=== PATIENT | male | born 1945 | race African-American/Black ===

== ENCOUNTER 2016-10-18 11:03 | Inpatient (IN) | payer OTHER ==
[2016-10-18] VITALS (7 sets, daily range): BP systolic 91–138; BP diastolic 51–92
[~2016-10-18] VITALS: Ht 172.7 cm; Wt 64.5 kg
[~2016-10-18 11:03] MED LIST: ATOR10TA PO; CARV3.1242 PO; FURO-152 PO; HYDR-4133 PO; ISOS30TA6 PO
[2016-10-18] MEDS ORDERED: ONDANSETRON HCL 4MG/2ML VIAL IV STA (11:20)
[2016-10-18] MEDS ORDERED: SODIUM CHLORIDE 0.9% 500 ML IV ONE (11:20)
[2016-10-18] MEDS ORDERED: ASPIRIN 81MG TABLET PO STA (11:20)
[2016-10-18 11:53] LABS: BASOPHILS % 0.3 % (0.0-2.0); EOSINOPHILS % 0.8 % (0.0-5.0); HEMATOCRIT. 44.2 % (42.0-52.0); HEMOGLOBIN. 14.1 g/dL (14.0-18.0); MEAN CORPUSCULAR HEMOGLOBIN 31.1 pg (28.0-32.0); MEAN CORPUSCULAR HGB CONC 31.8 g/dL (31.0-37.0); MEAN CORPUSCULAR VOLUME 97.8 fL (80.0-94.0); MEAN PLATELET VOLUME 9.2 fl (7.4-10.4); MONOCYTES % 10.4 % (2.0-8.0); NEUTROPHILS % 64.5 % (40.0-76.0); PLATELET 164 x1000/uL (130-400); RED BLOOD CELL COUNT 4.52 mill/uL (4.7-6.1); RED CELL DISTRIBUTION WIDTH 15.1 % (11.6-14.6); WHITE BLOOD COUNT 6.3 x1000/uL (4.5-11.0)
[2016-10-18 12:29] LABS: ALANINE AMINOTRANSFERASE 26 IU/L (13-61); ALBUMIN 3.3 g/dL (3.4-5.0); ANION GAP 11; CARBON DIOXIDE 29 mEq/L (21-32); CHLORIDE 105 mEq/L (98-107); INDEX HEMOLYSI 1 (1-3); INDEX ICTERIC 1 (1-4); INDEX LIPEMIC 1 (1-3); LIPASE 49 IU/L (73-393); UREA NITROGEN BLOOD 37 mg/dL (7-21); eGFR 43 mL/min (>60)
[2016-10-18 12:32] LABS: D-DIMER 2.07 mg/L FEU (<0.50); INR 1.1; PARTIAL THROMBOPLASTIN TIME 25.7 sec (24.0-34.0); PROTHROMBIN TIME 11.4 sec
[2016-10-18 12:33] LABS: NT PRO B-TYPE NATRIURETIC PEP 10519 pg/mL (5-125)
[2016-10-18 12:35] LABS: TROPONIN I 0.68 ng/mL (0.00-0.04)
[2016-10-18] MEDS ORDERED: ENOXAPARIN 80MG/0.8ML SYR SUBCUT ONE (13:00)
[2016-10-18] MEDS ORDERED: SODIUM POLYSTYRENE SULFONATE 15 G/60 ML BOT PO NR (13:15)
[2016-10-18] MEDS ORDERED: NA PHOS,M-B/NA PHOS,DI-BA ENEMA 118ML PR PRN (13:15)
[2016-10-18] MEDS ORDERED: ACETAMINOPHEN 325MG TABLET PO PRN (13:15)
[2016-10-18] MEDS ORDERED: IPRATROPIUM/ALBUTEROL 0.5-3(2.5)MG/3ML NEB INH PRN (13:15)
[2016-10-18] MEDS ORDERED: DEXTROSE 50% WATER 50ML SYRINGE IV PRN (13:15)
[2016-10-18] MEDS ORDERED: TRAMADOL 50MG TABLET PO PRN (13:15)
[2016-10-18] MEDS ORDERED: DIPHENHYDRAMINE 50MG/ML VIAL IV PRN (13:15)
[2016-10-18] MEDS ORDERED: ZOLPIDEM TARTRATE 5MG TABLET PO PRN (13:15)
[2016-10-18] MEDS ORDERED: DOCUSATE SODIUM 100MG CAPSULE PO PRN (13:15)
[2016-10-18] MEDS ORDERED: NITROGLYCERIN 0.4MG TABLET SL SL PRN (13:15)
[2016-10-18] MEDS ORDERED: LORAZEPAM 2MG/ML CPJ IV PRN (13:15)
[2016-10-18] MEDS ORDERED: MAGNESIUM/ALUMINUM HYDROXIDE/SIMETHICONE 30ML UDC PO PRN (13:15)
[2016-10-18] MEDS ORDERED: GUAIFENESIN 200MG/10ML SUGAR FREE UDC PO PRN (13:15)
[2016-10-18] MEDS ORDERED: CLONIDINE 0.1MG TABLET PO PRN (13:15)
[2016-10-18] MEDS ORDERED: ONDANSETRON HCL 4MG/2ML VIAL IV PRN (13:15)
[2016-10-18] MEDS ORDERED: MORPHINE SULFATE 4 MG/ML CPJ (NOT FOR IM USE) IV ONE (14:15)
[2016-10-18] MEDS ORDERED: ONDANSETRON HCL 4MG/2ML VIAL IV ONE (14:15)
[2016-10-18 15:10] LABS: CREATINE KINASE MB FRACTION 4.5 ng/mL (0.5-3.6)
[2016-10-18 15:12] LABS: TROPONIN I 0.65 ng/mL (0.00-0.04)
[2016-10-18] MEDS: BLOOD SUGAR DIAGNOSTIC STRIP TEST SCH ×2 (16:39→21:00)
[2016-10-18] MEDS ORDERED: ENOXAPARIN 60MG/0.6ML SYR SUBCUT SCH (17:00)
[2016-10-18] MEDS: MORPHINE SULFATE 2 MG/ML CPJ (NOT FOR IM USE) IV PRN ×2 (17:45→23:18)
[2016-10-18] MEDS: INSULIN LISPRO 100 UNITS/ML SUBCUT SCH ×2 (17:47→21:29)
[2016-10-18] MEDS: CARVEDILOL 3.125 MG TABLET PO SCH (18:20)
[2016-10-18] MEDS: ATORVASTATIN CALCIUM 10MG TABLET PO SCH (21:29)
[2016-10-18] MEDS ORDERED: INSULIN DETEMIR UD 100 UNITS/ML SYR SUBCUT SCH (22:00)
[2016-10-18] MEDS: INSULIN DETEMIR UD 100 UNITS/ML SYR SUBCUT SCH (23:00)
[2016-10-18 23:08] LABS: CREATINE KINASE 163 IU/L (39-308); INDEX HEMOLYSI 1 (1-3)
[2016-10-19] VITALS (11 sets, daily range): BP systolic 114–161; BP diastolic 54–93
[2016-10-19] MEDS: MORPHINE SULFATE 2 MG/ML CPJ (NOT FOR IM USE) IV PRN ×4 (05:47→21:51)
[2016-10-19] MEDS: CARVEDILOL 3.125 MG TABLET PO SCH ×2 (06:09→18:12)
[2016-10-19 06:19] LABS: BASOPHILS % 0.5 % (0.0-2.0); EOSINOPHILS % 1.2 % (0.0-5.0); HEMATOCRIT. 41.2 % (42.0-52.0); HEMOGLOBIN. 13.2 g/dL (14.0-18.0); LYMPHOCYTES % 45.3 % (20.0-50.0); MEAN CORPUSCULAR HEMOGLOBIN 31.3 pg (28.0-32.0); MEAN CORPUSCULAR HGB CONC 32.1 g/dL (31.0-37.0); MEAN CORPUSCULAR VOLUME 97.4 fL (80.0-94.0); MEAN PLATELET VOLUME 8.8 fl (7.4-10.4); MONOCYTES % 12.1 % (2.0-8.0); NEUTROPHILS % 40.9 % (40.0-76.0); PLATELET 130 x1000/uL (130-400); RED BLOOD CELL COUNT 4.22 mill/uL (4.7-6.1); RED CELL DISTRIBUTION WIDTH 14.4 % (11.6-14.6); WHITE BLOOD COUNT 5.2 x1000/uL (4.5-11.0)
[2016-10-19] MEDS: BLOOD SUGAR DIAGNOSTIC STRIP TEST SCH ×4 (06:50→21:00)
[2016-10-19 07:06] LABS: ALANINE AMINOTRANSFERASE 35 IU/L (13-61); ALBUMIN 3.1 g/dL (3.4-5.0); ANION GAP 10; CALCIUM 8.7 mg/dL (8.5-10.1); CARBON DIOXIDE 31 mEq/L (21-32); CHLORIDE 108 mEq/L (98-107); CREATINE KINASE 135 IU/L (39-308); HDL CHOLESTEROL 53 mg/dL (40-59); INDEX HEMOLYSI 1 (1-3); INDEX ICTERIC 1 (1-4); INDEX LIPEMIC 1 (1-3); MAGNESIUM 2.4 mg/dL (1.8-2.4); TRIGLYCERIDE 89 mg/dL (0-150); UREA NITROGEN BLOOD 42 mg/dL (7-21); eGFR 40 mL/min (>60)
[2016-10-19] MEDS: INSULIN LISPRO 100 UNITS/ML SUBCUT SCH ×4 (07:20→21:14)
[2016-10-19 07:21] LABS: LDL CHOLESTEROL 52 mg/dL (5-100)
[2016-10-19] MEDS: ASPIRIN 325MG EC TABLET PO SCH (08:08)
[2016-10-19] MEDS: PANTOPRAZOLE SODIUM 40 MG/VIAL IV SCH (08:08)
[2016-10-19 08:35] LABS: TROPONIN I 0.66 ng/mL (0.00-0.04)
[2016-10-19] MEDS: NITROGLYCERIN OINT 1GM/INCH UDPKT TD SCH ×4 (10:38→21:13)
[2016-10-19] MEDS ORDERED: ENOXAPARIN 60MG/0.6ML SYR SUBCUT SCH (13:00)
[2016-10-19] MEDS ORDERED: LIDOCAINE HCL 1% 20ML VIAL (Pyxis) INJ ONE (13:42)
[2016-10-19] MEDS ORDERED: IODIXANOL 320MG/ML 200ML BOTTLE ONE (13:45)
[2016-10-19] MEDS ORDERED: FENTANYL CITRATE/PF 50MCG/ML 2ML VIAL ONE (14:00)
[2016-10-19] MEDS ORDERED: MIDAZOLAM HCL 2 MG/2 ML VIAL ONE ×2 (14:00→14:12)
[2016-10-19] MEDS ORDERED: HEPARIN SODIUM 1,000 UNIT/1ML VIAL IV ONE ×2 (14:01→14:40)
[2016-10-19 14:23] LABS: CLARITY URINE CLEAR (CLEAR); COLOR URINE YELLOW (YELLOW); GLUCOSE URINE 2+ (NEGATIVE); KETONES URINE NEGATIVE (NEGATIVE); LEUKOCYTE ESTERASE URINE NEGATIVE (NEGATIVE); NITRITE URINE NEGATIVE (NEGATIVE); OCCULT BLOOD URINE NEGATIVE (NEGATIVE); PROTEIN URINE NEGATIVE (NEGATIVE); SPECIFIC GRAVITY URINE 1.022 (1.005-1.030)
[2016-10-19 14:34] LABS: *AMPHETAMINES SCREEN URINE NEGATIVE (NEGATIVE); *BARBITURATES SCREEN URINE NEGATIVE (NEGATIVE); *BENZODIAZEPINES SCREEN URINE NEGATIVE (NEGATIVE); *COCAINE SCREEN URINE NEGATIVE (NEGATIVE); CANNABINOID URINE SCREEN NEGATIVE (NEGATIVE); ECSTASY MDMA SCREEN URINE NEGATIVE (NEGATIVE); METHADONE URINE SCREEN NEGATIVE (NEGATIVE); OPIATES URINE SCREEN PRESUMTIVE POSITIVE (NEGATIVE); PHENCYCLIDINE URINE SCREEN NEGATIVE (NEGATIVE)
[2016-10-19] MEDS ORDERED: ONDANSETRON HCL 4MG/2ML VIAL ONE (15:12)
[2016-10-19 15:18] LABS: SQUAMOUS EPITHELIAL CELL URINE RARE /lpf (RARE/1+)
[2016-10-19 15:19] LABS: BACTERIA URINE NONE SEEN; RBC URINE 0-2 /hpf (0-2); WBC URINE 0-2 /hpf (0-2)
[2016-10-19] MEDS: ATORVASTATIN CALCIUM 10MG TABLET PO SCH (21:12)
[2016-10-19] MEDS: INSULIN DETEMIR UD 100 UNITS/ML SYR SUBCUT SCH (22:03)
[2016-10-20] VITALS (11 sets, daily range): BP systolic 131–159; BP diastolic 65–97
[2016-10-20] MEDS: NITROGLYCERIN OINT 1GM/INCH UDPKT TD SCH ×5 (01:08→17:44)
[2016-10-20] MEDS: MORPHINE SULFATE 2 MG/ML CPJ (NOT FOR IM USE) IV PRN ×3 (04:39→16:00)
[2016-10-20] MEDS: CARVEDILOL 3.125 MG TABLET PO SCH ×2 (05:47→17:44)
[2016-10-20 06:43] LABS: BASOPHILS % 0.5 % (0.0-2.0); EOSINOPHILS % 1.2 % (0.0-5.0); HEMATOCRIT. 37.9 % (42.0-52.0); HEMOGLOBIN. 12.2 g/dL (14.0-18.0); LYMPHOCYTES % 33.5 % (20.0-50.0); MEAN CORPUSCULAR HEMOGLOBIN 31.2 pg (28.0-32.0); MEAN CORPUSCULAR HGB CONC 32.1 g/dL (31.0-37.0); MEAN CORPUSCULAR VOLUME 97.1 fL (80.0-94.0); MEAN PLATELET VOLUME 8.7 fl (7.4-10.4); MONOCYTES % 13.7 % (2.0-8.0); NEUTROPHILS % 51.1 % (40.0-76.0); PLATELET 121 x1000/uL (130-400); RED BLOOD CELL COUNT 3.91 mill/uL (4.7-6.1); RED CELL DISTRIBUTION WIDTH 15.1 % (11.6-14.6); WHITE BLOOD COUNT 4.9 x1000/uL (4.5-11.0)
[2016-10-20] MEDS: BLOOD SUGAR DIAGNOSTIC STRIP TEST SCH ×3 (06:50→16:02)
[2016-10-20 07:19] LABS: CHLORIDE 107 mEq/L (98-107); INDEX HEMOLYSI 1 (1-3); INDEX ICTERIC 1 (1-4); INDEX LIPEMIC 1 (1-3)
[2016-10-20] MEDS: INSULIN LISPRO 100 UNITS/ML SUBCUT SCH ×3 (07:55→17:43)
[2016-10-20 08:28] LABS: ALANINE AMINOTRANSFERASE 43 IU/L (13-61); ALBUMIN 2.9 g/dL (3.4-5.0); ANION GAP 16; CALCIUM 8.4 mg/dL (8.5-10.1); CARBON DIOXIDE 25 mEq/L (21-32); MAGNESIUM 2.3 mg/dL (1.8-2.4); NT PRO B-TYPE NATRIURETIC PEP 10182 pg/mL (5-125); UREA NITROGEN BLOOD 33 mg/dL (7-21); eGFR 52 mL/min (>60)
[2016-10-20] MEDS: PANTOPRAZOLE SODIUM 40 MG/VIAL IV SCH (09:02)
[2016-10-20] MEDS: ASPIRIN 325MG EC TABLET PO SCH (09:02)
[2016-10-21] MEDS ORDERED: PANTOPRAZOLE 40MG DR TABLET PO SCH (06:50)
== END 2016-10-20 20:22 | disposition short-term general hospital (02) | DRG 280 ==
LOC: ER 11:07 → 3WST 12:51 → SUPCPDRO 12:59
PROVIDERS: ADMIT Internal Medicine; ATTEND Internal Medicine
PROC: 4A023N7 Measurement of Cardiac Sampling and Pressure, Left Heart, Percutaneous Approach (ICD-10-PCS; principal; 2016-10-19)
PROC: B2111ZZ Fluoroscopy of Multiple Coronary Arteries using Low Osmolar Contrast (ICD-10-PCS; 2016-10-19)
PROC: B2131ZZ Fluoroscopy of Multiple Coronary Artery Bypass Grafts using Low Osmolar Contrast (ICD-10-PCS; 2016-10-19)
PROC: B2181ZZ Fluoroscopy of Left Internal Mammary Bypass Graft using Low Osmolar Contrast (ICD-10-PCS; 2016-10-19)
DX: I21.4 Non-ST elevation (NSTEMI) myocardial infarction (principal); N17.0 Acute kidney failure with tubular necrosis; I13.0 Hypertensive heart and chronic kidney disease with heart failure and stage 1 through stage 4 chronic kidney disease, or unspecified chronic kidney disease; I42.0 Dilated cardiomyopathy; I45.2 Bifascicular block; N17.9 Acute kidney failure, unspecified; T82.898A Other specified complication of vascular prosthetic devices, implants and grafts, initial encounter; E44.0 Moderate protein-calorie malnutrition; E11.22 Type 2 diabetes mellitus with diabetic chronic kidney disease; I50.9 Heart failure, unspecified; E78.00 Pure hypercholesterolemia, unspecified; E87.5 Hyperkalemia; H91.90 Unspecified hearing loss, unspecified ear; I34.0 Nonrheumatic mitral (valve) insufficiency; I44.0 Atrioventricular block, first degree; I45.10 Unspecified right bundle-branch block; J44.9 Chronic obstructive pulmonary disease, unspecified; Y83.2 Surgical operation with anastomosis, bypass or graft as the cause of abnormal reaction of the patient, or of later complication, without mention of misadventure at the time of the procedure; I25.119 Atherosclerotic heart disease of native coronary artery with unspecified angina pectoris; I25.5 Ischemic cardiomyopathy; M19.90 Unspecified osteoarthritis, unspecified site; N18.9 Chronic kidney disease, unspecified; Z79.02 Long term (current) use of antithrombotics/antiplatelets; Z79.899 Other long term (current) drug therapy; I25.2 Old myocardial infarction; Z68.21 Body mass index [BMI] 21.0-21.9, adult; Z79.4 Long term (current) use of insulin; Z95.5 Presence of coronary angioplasty implant and graft; Z88.0 Allergy status to penicillin; Z95.810 Presence of automatic (implantable) cardiac defibrillator; Y92.89 Other specified places as the place of occurrence of the external cause; Z95.1 Presence of aortocoronary bypass graft
CPT/HCPCS: 36415; 70450; 71010; 78582; 80053; 80061; 80305; 81001; 82550; 82553; 82962; 83036; 83690; 83735; 83880; 84443; 84484; 85025; 85379; 85610; 85730; 93005; 93306; 93459; 93970; 96361; 96372; 96374; 99285; A9558; C1760; C1769; C1887; C1893; C9113; J1644; J1650; J1815; J2250; J2270; J2405; J3010; J3490; J7040; Q9967

== ENCOUNTER 2016-10-27 10:41 | Inpatient (IN) | payer OTHER ==
[~2016-10-27] VITALS: Ht 172.7 cm; Wt 64.9 kg
[2016-10-27 11:45] LABS: BASOPHILS % 0.7 % (0.0-2.0); HEMATOCRIT. 43.3 % (42.0-52.0); HEMOGLOBIN. 13.8 g/dL (14.0-18.0); LYMPHOCYTES % 25.7 % (20.0-50.0); MEAN CORPUSCULAR HEMOGLOBIN 30.7 pg (28.0-32.0); MEAN CORPUSCULAR HGB CONC 31.9 g/dL (31.0-37.0); MEAN CORPUSCULAR VOLUME 96.2 fL (80.0-94.0); MEAN PLATELET VOLUME 8.8 fl (7.4-10.4); MONOCYTES % 14.2 % (2.0-8.0); NEUTROPHILS % 58.4 % (40.0-76.0); PLATELET 131 x1000/uL (130-400); RED CELL DISTRIBUTION WIDTH 14.9 % (11.6-14.6)
[2016-10-27 12:04] LABS: ALANINE AMINOTRANSFERASE 43 IU/L (13-61); ALBUMIN 3.5 g/dL (3.4-5.0); ANION GAP 13; CALCIUM 8.7 mg/dL (8.5-10.1); CARBON DIOXIDE 27 mEq/L (21-32); CHLORIDE 106 mEq/L (98-107); INDEX HEMOLYSI 1 (1-3); INDEX ICTERIC 1 (1-4); INDEX LIPEMIC 1 (1-3); UREA NITROGEN BLOOD 41 mg/dL (7-21); eGFR 40 mL/min (>60)
[2016-10-27 12:09] LABS: TROPONIN I 0.96 ng/mL (0.00-0.04)
[2016-10-27] MEDS ORDERED: NITROGLYCERIN OINT 1GM/INCH UDPKT TD ONE (12:45)
[2016-10-27] MEDS ORDERED: MORPHINE SULFATE 2 MG/ML CPJ (NOT FOR IM USE) IV ONE (12:45)
[2016-10-27] MEDS ORDERED: ASPIRIN 325MG EC TABLET PO ONE (12:45)
[2016-10-27] MEDS ORDERED: CLONIDINE 0.1MG TABLET PO PRN (15:30)
[2016-10-27] MEDS ORDERED: NA PHOS,M-B/NA PHOS,DI-BA ENEMA 118ML PR PRN (15:30)
[2016-10-27] MEDS ORDERED: ACETAMINOPHEN 325MG TABLET PO PRN (15:30)
[2016-10-27] MEDS ORDERED: GUAIFENESIN 200MG/10ML SUGAR FREE UDC PO PRN (15:30)
[2016-10-27] MEDS ORDERED: TRAMADOL 50MG TABLET PO PRN (15:30)
[2016-10-27] MEDS ORDERED: IPRATROPIUM/ALBUTEROL 0.5-3(2.5)MG/3ML NEB INH PRN (15:30)
[2016-10-27] MEDS ORDERED: DEXTROSE 50% WATER 50ML SYRINGE IV PRN (15:30)
[2016-10-27] MEDS ORDERED: ZOLPIDEM TARTRATE 5MG TABLET PO PRN (15:30)
[2016-10-27] MEDS ORDERED: NITROGLYCERIN 0.4MG TABLET SL SL PRN (15:30)
[2016-10-27] MEDS ORDERED: ONDANSETRON HCL 4MG/2ML VIAL IV PRN (15:30)
[2016-10-27] MEDS ORDERED: DOCUSATE SODIUM 100MG CAPSULE PO PRN (15:30)
[2016-10-27] MEDS ORDERED: DIPHENHYDRAMINE 50MG/ML VIAL IV PRN (15:30)
[2016-10-27] MEDS ORDERED: LORAZEPAM 2MG/ML CPJ IV PRN (15:30)
[2016-10-27] MEDS ORDERED: MAGNESIUM/ALUMINUM HYDROXIDE/SIMETHICONE 30ML UDC PO PRN (15:30)
[2016-10-27 19:57] LABS: CALCIUM 9.1 mg/dL (8.5-10.1)
[2016-10-27] MEDS ORDERED: SODIUM CHLORIDE 0.9% 1,000 ML IV ONE (20:00)
[2016-10-27] MEDS ORDERED: ATORVASTATIN CALCIUM 10MG TABLET PO SCH (21:00)
[2016-10-27] MEDS: MORPHINE SULFATE 2 MG/ML CPJ (NOT FOR IM USE) IV PRN ×2 (22:09→22:27)
[2016-10-27 22:55] VITALS: BP_SYST 100; BP_SYST 124; BP_DIAS 70; BP_DIAS 73
[2016-10-27 22:56] LABS: CREATINE KINASE MB FRACTION 2.8 ng/mL (0.5-3.6)
[2016-10-27 22:59] LABS: TROPONIN I 0.84 ng/mL (0.00-0.04)
[2016-10-28] VITALS: BP 124/67
[2016-10-28] MEDS ORDERED: TERA1CAP PO (01:03)
[2016-10-28] MEDS ORDERED: ISOS10TA2 PO (01:03)
[2016-10-28] MEDS ORDERED: BISO5TAB13 PO (01:03)
[2016-10-28] MEDS ORDERED: FURO40TA5 PO (01:03)
[2016-10-28] MEDS ORDERED: ATOR80TA76 PO (01:03)
[2016-10-28] MEDS ORDERED: FURO20TA4 PO (01:03)
[2016-10-28] MEDS ORDERED: CLOP75TA33 PO (01:03)
[2016-10-28] MEDS ORDERED: SODIUM POLYSTYRENE SULFONATE 15 G/60 ML BOT PO NR ×2 (01:09→10:15)
[2016-10-28] MEDS ORDERED: LOPE2CAP PO (01:11)
[2016-10-28] MEDS ORDERED: FLUT15.88 INH (01:11)
[2016-10-28] MEDS ORDERED: SPIRIVA INH (01:11)
[2016-10-28] MEDS ORDERED: ENOXAPARIN 60MG/0.6ML SYR SUBCUT SCH (01:30)
[2016-10-28] MEDS ORDERED: INSULIN DETEMIR UD 100 UNITS/ML SYR SUBCUT SCH ×3 (02:00→22:00)
[2016-10-28 04:00] VITALS: BP 144/82
[2016-10-28] MEDS: MORPHINE SULFATE 2 MG/ML CPJ (NOT FOR IM USE) IV PRN ×3 (04:17→16:33)
[2016-10-28] MEDS: BLOOD SUGAR DIAGNOSTIC STRIP TEST SCH ×3 (06:19→17:50)
[2016-10-28] MEDS: CARVEDILOL 3.125 MG TABLET PO SCH ×2 (06:19→17:50)
[2016-10-28 06:22] LABS: CREATINE KINASE MB FRACTION 2.9 ng/mL (0.5-3.6)
[2016-10-28 06:43] LABS: TROPONIN I 0.84 ng/mL (0.00-0.04)
[2016-10-28 07:42] LABS: CALCIUM 8.3 mg/dL (8.5-10.1)
[2016-10-28 08:13] VITALS: BP 125/90
[2016-10-28] MEDS: INSULIN LISPRO 100 UNITS/ML SUBCUT SCH ×3 (08:35→18:24)
[2016-10-28] MEDS ORDERED: PANTOPRAZOLE SODIUM 40 MG/VIAL IV SCH (09:00)
[2016-10-28] MEDS ORDERED: ASPIRIN 325MG EC TABLET PO SCH (09:00)
[2016-10-28] MEDS ORDERED: ISOSORBIDE MONONITRATE 30MG TABLET SR 24HR PO SCH (09:00)
[2016-10-28 12:00] VITALS: BP 132/77
[2016-10-28 16:00] VITALS: BP 113/65
[2016-10-28 18:32] VITALS: BP 113/65
== END 2016-10-28 19:20 | disposition short-term general hospital (02) | DRG 280 ==
LOC: ER 10:48 → 7WST 15:17
PROVIDERS: ADMIT Internal Medicine; ATTEND Internal Medicine
DX: I21.4 Non-ST elevation (NSTEMI) myocardial infarction (principal); N17.0 Acute kidney failure with tubular necrosis; I13.0 Hypertensive heart and chronic kidney disease with heart failure and stage 1 through stage 4 chronic kidney disease, or unspecified chronic kidney disease; I25.110 Atherosclerotic heart disease of native coronary artery with unstable angina pectoris; E11.22 Type 2 diabetes mellitus with diabetic chronic kidney disease; K29.70 Gastritis, unspecified, without bleeding; E78.00 Pure hypercholesterolemia, unspecified; E87.5 Hyperkalemia; I50.9 Heart failure, unspecified; N18.9 Chronic kidney disease, unspecified; Z95.1 Presence of aortocoronary bypass graft; Z88.8 Allergy status to other drugs, medicaments and biological substances; Z88.0 Allergy status to penicillin; Z87.891 Personal history of nicotine dependence
CPT/HCPCS: 36415; 71010; 80048; 80053; 80061; 82550; 82553; 82962; 83036; 84484; 85025; 93005; 93970; 96372; 96374; 96375; 96376; 99285; C9113; J1650; J1815; J2270; J2405; J7030

== ENCOUNTER 2017-07-22 22:45 | Inpatient (IN) | payer OTHER ==
[~2017-07-22] VITALS: Ht 172.7 cm; Wt 62.7 kg
[~2017-07-22 22:45] MED LIST changes: +ATOR-2 PO; -ATOR10TA PO; +BISO5TAB13 PO; -CARV3.1242 PO; +CLOP75TA33 PO; +FLUT15.88 INH; -FURO-152 PO; +FURO20TA4 PO; +FURO40TA5 PO; -HYDR-4133 PO; +ISOS10TA2 PO; -ISOS30TA6 PO; +LOPE2CAP PO; +SPIRIVA INH; +TERA1CAP7 PO
[2017-07-22] MEDS ORDERED: ASPIRIN 81MG TABLET PO ONE (23:45)
[2017-07-23 00:29] LABS: BASOPHILS % 0.6 % (0.0-2.0); EOSINOPHILS % 1.4 % (0.0-5.0); HEMATOCRIT. 41.6 % (42.0-52.0); HEMOGLOBIN. 13.2 g/dL (14.0-18.0); LYMPHOCYTES % 44.2 % (20.0-50.0); MEAN CORPUSCULAR HEMOGLOBIN 31.5 pg (28.0-32.0); MEAN CORPUSCULAR VOLUME 99.7 fL (80.0-94.0); MEAN PLATELET VOLUME 8.7 fl (7.4-10.4); NEUTROPHILS % 41.8 % (40.0-76.0); PLATELET 138 x1000/uL (130-400); RED BLOOD CELL COUNT 4.17 mill/uL (4.7-6.1); RED CELL DISTRIBUTION WIDTH 15.3 % (11.6-14.6)
[2017-07-23 00:35] LABS: INR 1.1; PROTHROMBIN TIME 11.1 sec (9.4-11.6)
[2017-07-23 00:48] LABS: CARBON DIOXIDE 28 mEq/L (21-32); CHLORIDE 109 mEq/L (98-107)
[2017-07-23 00:52] LABS: TROPONIN I 0.54 ng/mL (0.00-0.04)
[2017-07-23] MEDS ORDERED: MORPHINE SULFATE 4 MG/ML CPJ (NOT FOR IM USE) IV ONE (01:30)
[2017-07-23] MEDS ORDERED: ENOXAPARIN 60MG/0.6ML SYR SUBCUT NR (02:00)
[2017-07-23] MEDS ORDERED: CALCIUM CHLORIDE 1GM/10ML SYR IV ONE (02:15)
[2017-07-23] MEDS ORDERED: SODIUM BICARBONATE 8.4% 1 MEQ/ML 50ML SYR IV ONE (02:15)
[2017-07-23] MEDS ORDERED: INSULIN REGULAR (HUMULIN R) 300UNITS/3ML IV ONE (02:15)
[2017-07-23] MEDS ORDERED: DEXTROSE 50% WATER 50ML SYRINGE IV ONE (02:15)
[2017-07-23 04:04] VITALS: BP 132/63
[2017-07-23] MEDS ORDERED: ASPI-1159 PO (04:16)
[2017-07-23 04:30] VITALS: BP 130/63
[2017-07-23] MEDS ORDERED: DEXTROSE 50% WATER 50ML SYRINGE IV PRN (04:30)
[2017-07-23] MEDS: NITROGLYCERIN OINT 1GM/INCH UDPKT TD SCH ×2 (05:38→13:30)
[2017-07-23] MEDS: BLOOD SUGAR DIAGNOSTIC STRIP TEST SCH ×4 (06:35→20:13)
[2017-07-23] MEDS: INSULIN LISPRO 100 UNITS/ML SUBCUT SCH ×4 (07:24→21:07)
[2017-07-23 08:00] VITALS: BP 98/61
[2017-07-23] MEDS: METOPROLOL TARTRATE 25MG TABLET PO SCH ×2 (08:50→20:13)
[2017-07-23] MEDS ORDERED: ASPIRIN 81MG TABLET PO SCH (09:00)
[2017-07-23] MEDS ORDERED: ENOXAPARIN 40MG/0.4ML SYR SUBCUT SCH (09:00)
[2017-07-23] MEDS ORDERED: FUROSEMIDE 40MG TABLET PO SCH (09:00)
[2017-07-23 09:16] LABS: HEMOGLOBIN. 12.6 g/dL (14.0-18.0); MEAN CORPUSCULAR HEMOGLOBIN 31.2 pg (28.0-32.0); MEAN CORPUSCULAR VOLUME 99.1 fL (80.0-94.0); PLATELET 129 x1000/uL (130-400); RED BLOOD CELL COUNT 4.04 mill/uL (4.7-6.1)
[2017-07-23 09:49] LABS: CARBON DIOXIDE 24 mEq/L (21-32); CHLORIDE 110 mEq/L (98-107)
[2017-07-23 09:55] LABS: TROPONIN I 0.54 ng/mL (0.00-0.04)
[2017-07-23 10:14] LABS: PLATELET ESTIMATE SLIGHTLY DECREASED
[2017-07-23] MEDS: MORPHINE SULFATE 2 MG/ML CPJ (NOT FOR IM USE) IV PRN ×2 (11:07→16:07)
[2017-07-23 12:05] VITALS: BP 113/62
[2017-07-23 16:00] VITALS: BP 125/70
[2017-07-23 18:01] VITALS: BP 125/70
[2017-07-23] MEDS ORDERED: ATORVASTATIN CALCIUM 40MG TABLET PO SCH (21:00)
[2017-07-24] MEDS ORDERED: CLOPIDOGREL 75MG TABLET PO SCH (09:00)
== END 2017-07-23 21:45 | disposition short-term general hospital (02) | DRG 280 ==
LOC: ER 22:52 → 6WST 07-23 01:25 → EDBEDREQTM 07-23 01:28 → EDBEDREQ 07-23 01:28 → ENRESERV 07-23 01:37
PROVIDERS: ADMIT Internal Medicine; ATTEND Internal Medicine
DX: I21.4 Non-ST elevation (NSTEMI) myocardial infarction (principal); I50.23 Acute on chronic systolic (congestive) heart failure; N17.9 Acute kidney failure, unspecified; E44.0 Moderate protein-calorie malnutrition; D69.6 Thrombocytopenia, unspecified; E11.22 Type 2 diabetes mellitus with diabetic chronic kidney disease; I27.20 Pulmonary hypertension, unspecified; I13.0 Hypertensive heart and chronic kidney disease with heart failure and stage 1 through stage 4 chronic kidney disease, or unspecified chronic kidney disease; E78.5 Hyperlipidemia, unspecified; N18.9 Chronic kidney disease, unspecified; I44.0 Atrioventricular block, first degree; I25.10 Atherosclerotic heart disease of native coronary artery without angina pectoris; I25.5 Ischemic cardiomyopathy; M19.90 Unspecified osteoarthritis, unspecified site; I34.0 Nonrheumatic mitral (valve) insufficiency; I45.10 Unspecified right bundle-branch block; Z83.3 Family history of diabetes mellitus; Z82.49 Family history of ischemic heart disease and other diseases of the circulatory system; Z88.8 Allergy status to other drugs, medicaments and biological substances; Z88.0 Allergy status to penicillin; Z79.02 Long term (current) use of antithrombotics/antiplatelets; Z79.82 Long term (current) use of aspirin; Z95.1 Presence of aortocoronary bypass graft; Z79.899 Other long term (current) drug therapy; I25.2 Old myocardial infarction; Z68.21 Body mass index [BMI] 21.0-21.9, adult
CPT/HCPCS: 36415; 71045; 80048; 80053; 82962; 83880; 84484; 85007; 85025; 85027; 85610; 93005; 96372; 96374; 96375; 99285; J1650; J1815; J2270; J3490

== ENCOUNTER 2017-11-07 12:40 | Inpatient (IN) | payer OTHER ==
[~2017-11-07] VITALS: Ht 172.7 cm; Wt 63.2 kg
[~2017-11-07 12:40] MED LIST changes: +ASPI-1159 PO; -FURO20TA4 PO; -LOPE2CAP PO; -TERA1CAP7 PO
[2017-11-07] MEDS ORDERED: ONDANSETRON HCL 4MG/2ML VIAL IV STA (14:01)
[2017-11-07] MEDS ORDERED: MORPHINE SULFATE 4 MG/ML CPJ (NOT FOR IM USE) IV STA (14:01)
[2017-11-07] MEDS ORDERED: ASPIRIN 81MG TABLET PO STA (14:01)
[2017-11-07 15:26] LABS: BASOPHILS % 0.7 % (0.0-2.0); EOSINOPHILS % 1.3 % (0.0-5.0); HEMATOCRIT. 40.3 % (42.0-52.0); HEMOGLOBIN. 12.9 g/dL (14.0-18.0); LYMPHOCYTES % 30.4 % (20.0-50.0); MEAN CORPUSCULAR HEMOGLOBIN 32.4 pg (28.0-32.0); MEAN CORPUSCULAR VOLUME 101.2 fL (80.0-94.0); MEAN PLATELET VOLUME 8.6 fl (7.4-10.4); MONOCYTES % 9.7 % (2.0-8.0); NEUTROPHILS % 57.9 % (40.0-76.0); PLATELET 119 x1000/uL (130-400); RED BLOOD CELL COUNT 3.98 mill/uL (4.7-6.1); RED CELL DISTRIBUTION WIDTH 14.6 % (11.6-14.6)
[2017-11-07 15:30] LABS: CHLORIDE 109 mEq/L (98-107)
[2017-11-07 15:35] LABS: D-DIMER 2.11 mg/L FEU (<0.50); INR 1.1; PROTHROMBIN TIME 11.1 sec (9.4-11.6)
[2017-11-07] MEDS ORDERED: MAGNESIUM HYDROXIDE 400MG/5ML 30ML UDC PO PRN (18:15)
[2017-11-07] MEDS ORDERED: DIPHENHYDRAMINE 50MG/ML VIAL IV PRN (18:15)
[2017-11-07] MEDS ORDERED: MAGNESIUM/ALUMINUM HYDROXIDE/SIMETHICONE 30ML UDC PO PRN (18:15)
[2017-11-07] MEDS ORDERED: ACETAMINOPHEN 325MG TABLET PO PRN (18:15)
[2017-11-07] MEDS ORDERED: ONDANSETRON HCL 4MG/2ML VIAL IV PRN (18:15)
[2017-11-07] MEDS ORDERED: IPRATROPIUM/ALBUTEROL 0.5-3(2.5)MG/3ML NEB INH PRN (18:15)
[2017-11-07] MEDS ORDERED: DEXTROSE 50% WATER 50ML SYRINGE IV PRN (18:15)
[2017-11-07] MEDS ORDERED: LORAZEPAM 0.5MG TABLET PO PRN (18:15)
[2017-11-07] MEDS ORDERED: GUAIFENESIN 200MG/10ML SUGAR FREE UDC PO PRN (18:15)
[2017-11-07] MEDS ORDERED: ZOLPIDEM TARTRATE 5MG TABLET PO PRN (18:15)
[2017-11-07 20:00] VITALS: BP_SYST 121; BP_SYST 132; BP_DIAS 54; BP_DIAS 66
[2017-11-07] MEDS ORDERED: ATORVASTATIN CALCIUM 40MG TABLET PO SCH ×2 (21:00)
[2017-11-07] MEDS ORDERED: FAMOTIDINE 20MG TABLET PO SCH (21:00)
[2017-11-07] MEDS: HYDRALAZINE HCL 50MG TABLET PO SCH (21:06)
[2017-11-07] MEDS: BLOOD SUGAR DIAGNOSTIC STRIP TEST SCH (21:06)
[2017-11-07] MEDS: MORPHINE SULFATE 4 MG/ML CPJ (NOT FOR IM USE) IV PRN (21:08)
[2017-11-07] MEDS: SODIUM CHLORIDE 0.9% INJ 3ML FLUSH IVF SCH (21:11)
[2017-11-07 22:00] VITALS: BP 121/66
[2017-11-07] MEDS: INSULIN LISPRO 100 UNITS/ML SUBCUT SCH (22:26)
[2017-11-07] MEDS: METOPROLOL TARTRATE 25MG TABLET PO SCH (22:29)
[2017-11-07] MEDS: NITROGLYCERIN OINT 1GM/INCH UDPKT TD SCH (22:29)
[2017-11-08] VITALS (12 sets, daily range): BP systolic 108–130; BP diastolic 48–75
[2017-11-08] MEDS: MORPHINE SULFATE 4 MG/ML CPJ (NOT FOR IM USE) IV PRN ×3 (03:48→18:24)
[2017-11-08] MEDS: SODIUM CHLORIDE 0.9% INJ 3ML FLUSH IVF SCH ×2 (06:00→13:09)
[2017-11-08] MEDS: BLOOD SUGAR DIAGNOSTIC STRIP TEST SCH ×3 (06:43→16:21)
[2017-11-08] MEDS: INSULIN LISPRO 100 UNITS/ML SUBCUT SCH ×3 (06:43→16:21)
[2017-11-08] MEDS: NITROGLYCERIN OINT 1GM/INCH UDPKT TD SCH ×2 (07:08→13:09)
[2017-11-08] MEDS: METOPROLOL TARTRATE 25MG TABLET PO SCH (08:21)
[2017-11-08] MEDS: HYDRALAZINE HCL 50MG TABLET PO SCH (08:21)
[2017-11-08] MEDS ORDERED: CLOPIDOGREL 75MG TABLET PO SCH (09:00)
[2017-11-08] MEDS ORDERED: FUROSEMIDE 40MG/4ML VIAL IVP SCH (09:00)
[2017-11-08] MEDS ORDERED: FUROSEMIDE 40MG TABLET PO SCH (09:00)
[2017-11-08] MEDS ORDERED: INSULIN GLARGINE UD 100 UNITS/ML SYR SUBCUT SCH (10:00)
[2017-11-08 12:25] LABS: HEPATITIS B SURFACE ANTIGEN NEGATIVE
[2017-11-08 12:53] LABS: HEPATITIS B CORE AB IGM NEGATIVE
[2017-11-08 12:54] LABS: HEPATITIS A AB IGM NEGATIVE (NEGATIVE)
[2017-11-08] MEDS ORDERED: FLUTICASONE PROPIONATE 50MCG/SPRAY BOTTLE BOTHNSTRLS SCH (21:00)
== END 2017-11-08 21:00 | disposition short-term general hospital (02) | DRG 313 ==
LOC: ER 13:46 → ENRESERV 14:12 → CANRESERV 14:12 → EDBEDREQSVC 16:00 → ENRESERV 16:03 → OBSVTOIN 17:26 → 3WST 17:26 → EDBEDREQ 17:27 → EDBEDREQTM 17:27
PROVIDERS: ADMIT Internal Medicine; ATTEND Internal Medicine
DX: R07.89 Other chest pain (principal); I25.10 Atherosclerotic heart disease of native coronary artery without angina pectoris; E11.22 Type 2 diabetes mellitus with diabetic chronic kidney disease; I27.20 Pulmonary hypertension, unspecified; I50.22 Chronic systolic (congestive) heart failure; I13.0 Hypertensive heart and chronic kidney disease with heart failure and stage 1 through stage 4 chronic kidney disease, or unspecified chronic kidney disease; E78.00 Pure hypercholesterolemia, unspecified; I25.5 Ischemic cardiomyopathy; E78.5 Hyperlipidemia, unspecified; N18.9 Chronic kidney disease, unspecified; J44.9 Chronic obstructive pulmonary disease, unspecified; G90.8 Other disorders of autonomic nervous system; J30.9 Allergic rhinitis, unspecified; R74.0 Nonspecific elevation of levels of transaminase and lactic acid dehydrogenase [LDH]; I25.2 Old myocardial infarction; Z82.49 Family history of ischemic heart disease and other diseases of the circulatory system; Z87.891 Personal history of nicotine dependence; Z83.3 Family history of diabetes mellitus; Z95.1 Presence of aortocoronary bypass graft; Z95.810 Presence of automatic (implantable) cardiac defibrillator; Z79.899 Other long term (current) drug therapy; Z88.0 Allergy status to penicillin; Z88.8 Allergy status to other drugs, medicaments and biological substances; Z79.82 Long term (current) use of aspirin
CPT/HCPCS: 36415; 71045; 78582; 80053; 82962; 83690; 83880; 84443; 84484; 85025; 85379; 85610; 85730; 86705; 86709; 86803; 87340; 93005; 93306; 93970; A9558; J1815; J2270; J2405

== ENCOUNTER 2018-04-01 09:42 | Inpatient (IN) | payer OTHER ==
[~2018-04-01] VITALS: Ht 172.7 cm; Wt 64.0 kg
[2018-04-01] VITALS (48 sets, daily range): BP systolic 7–196; BP diastolic 5–104
[2018-04-01] MEDS ORDERED: ONDANSETRON HCL 4MG/2ML INJ IV STA (10:25)
[2018-04-01] MEDS ORDERED: MORPHINE SULFATE 4 MG/ML CPJ (NOT FOR IM USE) IV STA (10:25)
[2018-04-01] MEDS ORDERED: NITROGLYCERIN OINT 1GM/INCH UDPKT TD ONE (10:30)
[2018-04-01] MEDS ORDERED: ASPIRIN 81MG TABLET PO ONE (10:30)
[2018-04-01] MEDS ORDERED: FUROSEMIDE 20MG/2ML VIAL IVP ONE (10:30)
[2018-04-01 10:37] LABS: BASOPHILS % 0.9 % (0.0-2.0); EOSINOPHILS % 5.9 % (0.0-5.0); HEMATOCRIT. 41.3 % (42.0-52.0); HEMOGLOBIN. 13.2 g/dL (14.0-18.0); LYMPHOCYTES % 35.8 % (20.0-50.0); MEAN CORPUSCULAR HEMOGLOBIN 30.3 pg (28.0-32.0); MEAN CORPUSCULAR VOLUME 94.8 fL (80.0-94.0); MEAN PLATELET VOLUME 10.3 fl (7.4-10.4); MONOCYTES % 9.9 % (2.0-8.0); NEUTROPHILS % 47.5 % (40.0-76.0); PLATELET 126 x1000/uL (130-400); RED BLOOD CELL COUNT 4.36 mill/uL (4.7-6.1); RED CELL DISTRIBUTION WIDTH 15.5 % (11.6-14.6)
[2018-04-01 10:45] LABS: CHLORIDE 112 mEq/L (98-107); INR 1.1; PROTHROMBIN TIME 11.1 sec (9.1-11.1)
[2018-04-01 10:54] LABS: CREATINE KINASE 90 IU/L (39-308)
[2018-04-01 10:57] LABS: CREATINE KINASE MB FRACTION 2.7 ng/mL (0.5-3.6)
[2018-04-01] MEDS ORDERED: HEPARIN 5000 UNITS/ML VIAL IV ONE (11:30)
[2018-04-01] MEDS ORDERED: LIDOCAINE HCL 1% 20ML VIAL (Pyxis) INJ ONE (11:46)
[2018-04-01] MEDS ORDERED: IODIXANOL 320MG/ML 100 ML BOTTLE IV ONE ×2 (11:46→12:41)
[2018-04-01] MEDS ORDERED: FENTANYL CITRATE/PF 50MCG/ML 2ML VIAL ONE (11:52)
[2018-04-01] MEDS ORDERED: MIDAZOLAM HCL 2 MG/2 ML VIAL ONE (11:52)
[2018-04-01] MEDS ORDERED: ASPIRIN/SOD BICARB/CITRIC ACID 324MG TAB EFF ONE (12:03)
[2018-04-01] MEDS ORDERED: CLONIDINE 0.1MG TABLET PO PRN ×2 (12:15→13:00)
[2018-04-01] MEDS ORDERED: IOHEXOL-300 100 ML BOTTLE ONE (12:21)
[2018-04-01] MEDS ORDERED: ZOLPIDEM TARTRATE 5MG TABLET PO PRN (13:00)
[2018-04-01] MEDS ORDERED: MORPHINE SULFATE 4 MG/ML CPJ (NOT FOR IM USE) IV PRN (13:00)
[2018-04-01] MEDS ORDERED: GUAIFENESIN 200MG/10ML SUGAR FREE UDC PO PRN (13:00)
[2018-04-01] MEDS ORDERED: DOCUSATE SODIUM 100MG CAPSULE PO PRN (13:00)
[2018-04-01] MEDS ORDERED: ACETAMINOPHEN 325MG TABLET PO PRN ×2 (13:00→13:30)
[2018-04-01] MEDS ORDERED: TRAMADOL 50MG TABLET PO PRN (13:00)
[2018-04-01] MEDS ORDERED: DEXTROSE 50% WATER 50ML SYRINGE IV PRN (13:00)
[2018-04-01] MEDS ORDERED: IPRATROPIUM/ALBUTEROL 0.5-3(2.5)MG/3ML NEB INH PRN (13:00)
[2018-04-01] MEDS ORDERED: ONDANSETRON HCL 4MG/2ML INJ IV PRN ×2 (13:00→13:30)
[2018-04-01] MEDS ORDERED: NA PHOS,M-B/NA PHOS,DI-BA ENEMA 118ML PR PRN (13:00)
[2018-04-01] MEDS ORDERED: LORAZEPAM 0.5MG TABLET PO PRN (13:00)
[2018-04-01] MEDS ORDERED: DIPHENHYDRAMINE 50MG/ML VIAL IV PRN (13:00)
[2018-04-01] MEDS ORDERED: MAGNESIUM/ALUMINUM HYDROXIDE/SIMETHICONE 30ML UDC PO PRN (13:00)
[2018-04-01] MEDS ORDERED: NITROGLYCERIN 0.4MG TABLET SL SL PRN (13:15)
[2018-04-01] MEDS ORDERED: ATROPINE SULFATE 1MG/10ML SYR IV PRN (13:30)
[2018-04-01] MEDS ORDERED: SODIUM CHLORIDE 0.45% 500 ML IV ONE (13:30)
[2018-04-01] MEDS ORDERED: HEPARIN SODIUM 1,000 UNIT/1ML VIAL IV ONE (13:48)
[2018-04-01] MEDS ORDERED: NICARDIPINE 100MCG/ML 10ML VIAL (CATH LAB) IV ONE (13:48)
[2018-04-01] MEDS ORDERED: NITROGLYCERIN 50MCG/ML 10ML VIAL (CATH LAB) IV ONE (13:48)
[2018-04-01] MEDS: PANTOPRAZOLE SODIUM 40 MG/VIAL IV SCH (15:17)
[2018-04-01] MEDS: CLOPIDOGREL 75MG TABLET PO SCH (15:17)
[2018-04-01] MEDS: BLOOD SUGAR DIAGNOSTIC STRIP TEST SCH ×2 (15:24→21:35)
[2018-04-01] MEDS: INSULIN LISPRO 100 UNITS/ML SUBCUT SCH ×2 (17:20→21:45)
[2018-04-01 18:00] LABS: CLARITY URINE CLEAR (CLEAR); COLOR URINE YELLOW (YELLOW); KETONES URINE NEGATIVE (NEGATIVE); LEUKOCYTE ESTERASE URINE NEGATIVE (NEGATIVE); NITRITE URINE NEGATIVE (NEGATIVE); OCCULT BLOOD URINE NEGATIVE (NEGATIVE); PH URINE 5.5 (4.5-8.0); PROTEIN URINE NEGATIVE (NEGATIVE); SPECIFIC GRAVITY URINE 1.018 (1.005-1.030); UROBILINOGEN URINE 0.2 E.U./dL (0.2-1.0)
[2018-04-01] MEDS ORDERED: HYDR-4134 PO (18:10)
[2018-04-01] MEDS ORDERED: ALLO100T PO (18:10)
[2018-04-01 18:16] LABS: METHADONE URINE SCREEN NEGATIVE (NEGATIVE); OPIATES URINE SCREEN PRESUMTIVE POSITIVE (NEGATIVE)
[2018-04-01 18:17] LABS: *AMPHETAMINES SCREEN URINE NEGATIVE (NEGATIVE); *BARBITURATES SCREEN URINE NEGATIVE (NEGATIVE); *BENZODIAZEPINES SCREEN URINE NEGATIVE (NEGATIVE); *COCAINE SCREEN URINE NEGATIVE (NEGATIVE); CANNABINOID URINE SCREEN NEGATIVE (NEGATIVE); PHENCYCLIDINE URINE SCREEN NEGATIVE (NEGATIVE)
[2018-04-01] MEDS: AMLODIPINE 5MG TABLET PO SCH (18:37)
[2018-04-01] MEDS: FUROSEMIDE 40MG/4ML VIAL IVP SCH (18:37)
[2018-04-01] MEDS: MORPHINE SULFATE 4 MG/ML CPJ (NOT FOR IM USE) IV PRN (18:38)
[2018-04-01] MEDS ORDERED: INFLUENZA VIRUS VACCINE(AFLURIA) 0.5ML SYR IM ONE (22:45)
[2018-04-02] VITALS (12 sets, daily range): BP systolic 126–159; BP diastolic 16–89
[2018-04-02] MEDS: MORPHINE SULFATE 4 MG/ML CPJ (NOT FOR IM USE) IV PRN ×3 (00:37→14:22)
[2018-04-02] MEDS: BLOOD SUGAR DIAGNOSTIC STRIP TEST SCH ×4 (06:00→20:02)
[2018-04-02] MEDS: FUROSEMIDE 40MG/4ML VIAL IVP SCH ×2 (06:29→17:05)
[2018-04-02 08:19] LABS: BASOPHILS % 0.3 % (0.0-2.0); EOSINOPHILS % 1.4 % (0.0-5.0); HEMATOCRIT. 38.2 % (42.0-52.0); HEMOGLOBIN. 12.3 g/dL (14.0-18.0); LYMPHOCYTES % 18.9 % (20.0-50.0); MEAN CORPUSCULAR HEMOGLOBIN 30.1 pg (28.0-32.0); MEAN CORPUSCULAR VOLUME 93.4 fL (80.0-94.0); MEAN PLATELET VOLUME 10.4 fl (7.4-10.4); MONOCYTES % 9.3 % (2.0-8.0); NEUTROPHILS % 70.1 % (40.0-76.0); PLATELET 117 x1000/uL (130-400); RED BLOOD CELL COUNT 4.09 mill/uL (4.7-6.1); RED CELL DISTRIBUTION WIDTH 15.4 % (11.6-14.6)
[2018-04-02] MEDS: CLOPIDOGREL 75MG TABLET PO SCH (08:39)
[2018-04-02] MEDS: PANTOPRAZOLE SODIUM 40 MG/VIAL IV SCH (08:47)
[2018-04-02] MEDS: AMLODIPINE 5MG TABLET PO SCH ×2 (08:47→17:05)
[2018-04-02] MEDS: INSULIN LISPRO 100 UNITS/ML SUBCUT SCH ×4 (08:49→20:08)
[2018-04-02] MEDS ORDERED: ASPIRIN 325MG TABLET PO SCH (09:00)
[2018-04-02 09:15] LABS: CHLORIDE 107 mEq/L (98-107)
[2018-04-02 09:24] LABS: CREATINE KINASE 62 IU/L (39-308); CREATINE KINASE MB FRACTION 2.4 ng/mL (0.5-3.6)
[2018-04-02 09:25] LABS: LDL CHOLESTEROL 61 mg/dL (5-100)
[2018-04-02 09:29] LABS: HDL CHOLESTEROL 54 mg/dL (40-59)
[2018-04-02] MEDS ORDERED: CLONIDINE 0.1MG TABLET PO PRN (12:45)
[2018-04-02] MEDS ORDERED: CLONIDINE 0.2MG TABLET PO PRN (12:45)
== END 2018-04-02 21:22 | disposition short-term general hospital (02) | DRG 281 ==
LOC: ER 09:57 → EDBEDREQ 11:12 → 3WST 11:19 → EDBEDREQSVC 11:26 → ENRESERV 12:17
PROVIDERS: ADMIT Internal Medicine; ATTEND Internal Medicine
PROC: 4A023N7 Measurement of Cardiac Sampling and Pressure, Left Heart, Percutaneous Approach (ICD-10-PCS; principal; 2018-04-01)
PROC: B2111ZZ Fluoroscopy of Multiple Coronary Arteries using Low Osmolar Contrast (ICD-10-PCS; 2018-04-01)
PROC: B2181ZZ Fluoroscopy of Left Internal Mammary Bypass Graft using Low Osmolar Contrast (ICD-10-PCS; 2018-04-01)
PROC: B2131ZZ Fluoroscopy of Multiple Coronary Artery Bypass Grafts using Low Osmolar Contrast (ICD-10-PCS; 2018-04-01)
DX: I21.4 Non-ST elevation (NSTEMI) myocardial infarction (principal); E44.1 Mild protein-calorie malnutrition; I45.3 Trifascicular block; I50.40 Unspecified combined systolic (congestive) and diastolic (congestive) heart failure; D63.8 Anemia in other chronic diseases classified elsewhere; D69.6 Thrombocytopenia, unspecified; E78.00 Pure hypercholesterolemia, unspecified; E83.51 Hypocalcemia; E83.52 Hypercalcemia; E87.5 Hyperkalemia; I25.110 Atherosclerotic heart disease of native coronary artery with unstable angina pectoris; I11.0 Hypertensive heart disease with heart failure; M19.90 Unspecified osteoarthritis, unspecified site; I25.5 Ischemic cardiomyopathy; I34.0 Nonrheumatic mitral (valve) insufficiency; I44.0 Atrioventricular block, first degree; M10.9 Gout, unspecified; E11.9 Type 2 diabetes mellitus without complications; K25.9 Gastric ulcer, unspecified as acute or chronic, without hemorrhage or perforation; K76.0 Fatty (change of) liver, not elsewhere classified; I25.2 Old myocardial infarction; Z87.891 Personal history of nicotine dependence; Z95.1 Presence of aortocoronary bypass graft; Z95.5 Presence of coronary angioplasty implant and graft; Z95.810 Presence of automatic (implantable) cardiac defibrillator; Z79.02 Long term (current) use of antithrombotics/antiplatelets; Z79.51 Long term (current) use of inhaled steroids; Z79.82 Long term (current) use of aspirin; Z79.899 Other long term (current) drug therapy; Z88.0 Allergy status to penicillin; Z88.8 Allergy status to other drugs, medicaments and biological substances; Z68.21 Body mass index [BMI] 21.0-21.9, adult
CPT/HCPCS: 36415; 71045; 80061; 80305; 82550; 82553; 82962; 83036; 83735; 83880; 84443; 84484; 85347; 85379; 90686; 93005; 93306; 93459; 93970; 96372; 96374; 96375; 99285; C1726; C1769; C1887; C1893; C1894; C9113; J1644; J1815; J1940; J2250; J2270; J2405; J3010; J3490; J7030; Q9967

== ENCOUNTER 2018-05-12 17:40 | Inpatient (IN) | payer OTHER ==
[~2018-05-12] VITALS: Ht 172.7 cm; Wt 61.2 kg
[~2018-05-12 17:40] MED LIST changes: +ALLO100T PO; +HYDR-4134 PO
[2018-05-12] MEDS ORDERED: ONDANSETRON HCL 4MG/2ML INJ IV STA (20:19)
[2018-05-12] MEDS ORDERED: MORPHINE SULFATE 4 MG/ML CPJ (NOT FOR IM USE) IV STA (20:19)
[2018-05-12 21:39] LABS: BASOPHILS % 0.1 % (0.0-2.0); EOSINOPHILS % 0.4 % (0.0-5.0); HEMATOCRIT. 43.6 % (42.0-52.0); HEMOGLOBIN. 14.1 g/dL (14.0-18.0); LYMPHOCYTES % 9.5 % (20.0-50.0); MEAN CORPUSCULAR HEMOGLOBIN 30.2 pg (28.0-32.0); MEAN CORPUSCULAR VOLUME 93.5 fL (80.0-94.0); MEAN PLATELET VOLUME 8.6 fl (7.4-10.4); MONOCYTES % 3.5 % (2.0-8.0); NEUTROPHILS % 86.5 % (40.0-76.0); PLATELET 106 x1000/uL (130-400); RED BLOOD CELL COUNT 4.66 mill/uL (4.7-6.1); RED CELL DISTRIBUTION WIDTH 16.2 % (11.6-14.6)
[2018-05-12 21:42] LABS: CHLORIDE 113 mEq/L (98-107)
[2018-05-12 21:45] LABS: INR 1.1; PARTIAL THROMBOPLASTIN TIME 30.6 sec (23.4-31.0); PROTHROMBIN TIME 10.7 sec (9.1-11.1)
[2018-05-12] MEDS ORDERED: ZOLPIDEM TARTRATE 5MG TABLET PO PRN (23:00)
[2018-05-12] MEDS ORDERED: NITROGLYCERIN 0.4MG TABLET SL SL PRN (23:00)
[2018-05-12] MEDS ORDERED: ONDANSETRON HCL 4MG/2ML INJ IV PRN (23:15)
[2018-05-12] MEDS ORDERED: IPRATROPIUM/ALBUTEROL 0.5-3(2.5)MG/3ML NEB INH PRN (23:15)
[2018-05-12] MEDS ORDERED: GUAIFENESIN 200MG/10ML SUGAR FREE UDC PO PRN (23:15)
[2018-05-12] MEDS ORDERED: CLONIDINE 0.1MG TABLET PO PRN (23:15)
[2018-05-12] MEDS ORDERED: ACETAMINOPHEN 325MG TABLET PO PRN (23:15)
[2018-05-12] MEDS ORDERED: MAGNESIUM/ALUMINUM HYDROXIDE/SIMETHICONE 30ML UDC PO PRN (23:15)
[2018-05-12] MEDS ORDERED: DEXTROSE 50% WATER 50ML SYRINGE IV PRN (23:15)
[2018-05-12] MEDS ORDERED: DIPHENHYDRAMINE 50MG/ML VIAL IV PRN (23:15)
[2018-05-12] MEDS ORDERED: DOCUSATE SODIUM 100MG CAPSULE PO PRN (23:15)
[2018-05-13] VITALS (7 sets, daily range): BP systolic 20–159; BP diastolic 71–144
[2018-05-13] MEDS: MORPHINE SULFATE 4 MG/ML CPJ (NOT FOR IM USE) IV PRN ×2 (01:50→06:09)
[2018-05-13] MEDS ORDERED: HYDR-4133 PO (02:56)
[2018-05-13] MEDS ORDERED: SODIUM POLYSTYRENE SULFONATE 15 G/60 ML BOT PO NR (05:00)
[2018-05-13] MEDS: BLOOD SUGAR DIAGNOSTIC STRIP TEST SCH ×3 (06:54→18:08)
[2018-05-13] MEDS: INSULIN LISPRO 100 UNITS/ML SUBCUT SCH ×3 (08:06→18:09)
[2018-05-13] MEDS ORDERED: METOPROLOL TARTRATE 25MG TABLET PO SCH (09:00)
[2018-05-13] MEDS ORDERED: ASCORBIC ACID 500 MG TABLET PO SCH (09:00)
[2018-05-13] MEDS ORDERED: ZINC SULFATE 220 MG ( 50 ) CAPSULE PO SCH (09:00)
[2018-05-13] MEDS ORDERED: ASPIRIN 325MG EC TABLET PO SCH (09:00)
[2018-05-13] MEDS ORDERED: FAMOTIDINE 20MG TABLET PO SCH (09:00)
[2018-05-13] MEDS ORDERED: FUROSEMIDE 20MG TABLET PO SCH (09:00)
[2018-05-13] MEDS: TRAMADOL 50MG TABLET PO PRN ×2 (09:36→18:18)
[2018-05-13 11:28] LABS: BASOPHILS % 0.6 % (0.0-2.0); EOSINOPHILS % 2.6 % (0.0-5.0); HEMATOCRIT. 39.3 % (42.0-52.0); HEMOGLOBIN. 12.7 g/dL (14.0-18.0); LYMPHOCYTES % 9.3 % (20.0-50.0); MEAN CORPUSCULAR HEMOGLOBIN 30.1 pg (28.0-32.0); MEAN CORPUSCULAR VOLUME 93.3 fL (80.0-94.0); MEAN PLATELET VOLUME 8.8 fl (7.4-10.4); MONOCYTES % 4.4 % (2.0-8.0); NEUTROPHILS % 83.1 % (40.0-76.0); PLATELET 96 x1000/uL (130-400); RED BLOOD CELL COUNT 4.22 mill/uL (4.7-6.1)
[2018-05-13 12:05] LABS: CHLORIDE 113 mEq/L (98-107)
[2018-05-13 12:16] LABS: CREATINE KINASE 100 IU/L (39-308)
[2018-05-13 12:17] LABS: CREATINE KINASE MB FRACTION 2.6 ng/mL (0.5-3.6)
[2018-05-13 20:55] LABS: CREATINE KINASE MB FRACTION 2.7 ng/mL (0.5-3.6)
== END 2018-05-13 20:55 | disposition short-term general hospital (02) | DRG 280 ==
LOC: ER 17:40 → 7WST 22:45 → EDBEDREQ 22:51 → EDBEDREQTM 22:51 → ENRESERV 23:57
PROVIDERS: ADMIT Internal Medicine; ATTEND Internal Medicine
DX: I21.4 Non-ST elevation (NSTEMI) myocardial infarction (principal); S72.011A Unspecified intracapsular fracture of right femur, initial encounter for closed fracture; N17.0 Acute kidney failure with tubular necrosis; D69.6 Thrombocytopenia, unspecified; E11.9 Type 2 diabetes mellitus without complications; E87.5 Hyperkalemia; I11.0 Hypertensive heart disease with heart failure; I25.10 Atherosclerotic heart disease of native coronary artery without angina pectoris; M19.90 Unspecified osteoarthritis, unspecified site; I50.9 Heart failure, unspecified; W01.0XXA Fall on same level from slipping, tripping and stumbling without subsequent striking against object, initial encounter; Z95.1 Presence of aortocoronary bypass graft; Z95.810 Presence of automatic (implantable) cardiac defibrillator; Y93.89 Activity, other specified; Y92.89 Other specified places as the place of occurrence of the external cause; Y99.8 Other external cause status; Z79.02 Long term (current) use of antithrombotics/antiplatelets; Z79.82 Long term (current) use of aspirin; Z79.899 Other long term (current) drug therapy; Z88.0 Allergy status to penicillin; Z88.5 Allergy status to narcotic agent
CPT/HCPCS: 36415; 71045; 72170; 72192; 73700; 80061; 82550; 82553; 82962; 83036; 83880; 84484; 93005; 93970; 96374; 96375; 99285; J1815; J2270; J2405